=== PATIENT | male | born 1995 | race Caucasian/White ===

== ENCOUNTER 2016-11-23 20:06 | Emergency (ER) | payer OTHER, BC ==
--- NOTE | 2016-11-23 20:58 | EDPHY ---
H & P Time Seen by Provider: 11/23/16 20:15 HPI/ROS: CHIEF COMPLAINT: right index finger laceration HISTORY OF PRESENT ILLNESS: 21-year-old otherwise healthy male presents with a laceration to his right index finger from a disc pad grinder. Patient is right- hand-dominant, denies numbness or tingling to his finger, tetanus is up-to-date , denies other complaints. Smoking Status: Former smoker Physical Exam: GEN: Awake, alert, oriented, no acute distress RESP: nl resp effort MSK: Left index finger with full active range of motion, sensation intact to light touch SKIN: Skin avulsion to distal tip right index finger with small laceration into fingernail Constitutional: Initial Vital Signs Temperature (C) 36.7 C 11/23/16 20:15 Heart Rate 85 11/23/16 20:15 Respiratory Rate 16 11/23/16 20:15 Blood Pressure 117/62 11/23/16 20:15 O2 Sat (%) 97 11/23/16 20:15 O2 Delivery Mode Room Air Allergies/Adverse Reactions: No Known Allergies Allergy (Unverified 11/23/16 20:14) Home Medications: Medication Instructions Recorded NK [No Known Home Meds] 11/22/14 MDM/Departure - MDM Procedures: Right index finger anesthetized with 4 mL of 1% lidocaine without epinephrine using a digital block, this was tolerated well by the patient. Finger was irrigated well by the emergency department air quality technician, dressing was placed - Depart Disposition: Home, Routine, Self-Care Clinical Impression: Avulsion of skin of finger Qualifiers: Encounter type: initial encounter Qualifier Code: (S61.209A) Unspecified open wound of unspecified finger without damage to nail, initial encounter Condition: Good Instructions: Skin Avulsion (ED) Additional Instructions: Keep dressing in place for 48 hours, clean and dry, then remove dressing, wash with soap and water, place antibiotic ointment and Band-Aid. Return to the emergency department for any signs of infection, drainage, increased pain, any other questions or concerns. Stand Alone Forms: Work Comp Follow Up
[2016-11-23 21:23] VITALS: BP 125/70; PULSE 81; RESP 14; TEMP 98.2; O2SAT 95
== END 2016-11-23 21:21 | disposition home or self-care (01) ==
DX: S61.209A Unspecified open wound of unspecified finger without damage to nail, initial encounter (principal); Z87.891 Personal history of nicotine dependence; W29.8XXA Contact with other powered hand tools and household machinery, initial encounter; Y99.0 Civilian activity done for income or pay; Y93.89 Activity, other specified

== ENCOUNTER 2017-01-18 11:58 | Emergency (ER) | payer BC, OTHER ==
[2017-01-18 12:07] VITALS: BP 126/80; PULSE 84; RESP 16; TEMP 97.5; O2SAT 97
== END 2017-01-18 12:31 | disposition left against medical advice (07) ==
DX: Z53.21 Procedure and treatment not carried out due to patient leaving prior to being seen by health care provider (principal)